=== PATIENT | female | born 1960 ===

== ENCOUNTER 2022-03-22 10:15 | Inpatient (IN) | payer OTHER, BC ==
[~2022-03-22] VITALS: Ht 165.1 cm; Wt 79.4 kg
[2022-03-23] MEDS ORDERED: CLONAZEPAM0.5 MG PO (08:34)
[2022-03-23] MEDS ORDERED: KEPPRA750 MG PO (08:34)
[2022-03-23] MEDS ORDERED: OMEPRAZOLE-BIC1 EAC1 PO (08:35)
[2022-03-23] MEDS ORDERED: VIMPAT200 MG PO (08:35)
[2022-03-23] MEDS ORDERED: TOPAMAX200 MG PO (08:35)
[2022-03-25] MEDS ORDERED: ATORVASTATIN CA10 MG (08:54)
[2022-03-25] MEDS ORDERED: BOTOX100 UNIT (08:55)
[2022-03-25] MEDS ORDERED: INTEGRA PLUS C1 EACH (08:55)
[2022-03-25] MEDS ORDERED: OMEPRAZOLE40 MG (08:55)
[2022-03-25] MEDS ORDERED: ST. JOSEPH ASPI81 M2 (08:55)
[2022-03-25] MEDS ORDERED: TOPIRAMATE100 MG (08:55)
[2022-03-25] MEDS ORDERED: LEVOTHYROXINE25 MC1 (08:55)
[2022-03-25] MEDS ORDERED: CLOTRIMAZOLE-BE15 G1 (08:55)
[2022-03-26] MEDS ORDERED: PERCOCET 5-3251 EACH PO (13:39)
== END 2022-03-26 15:05 | disposition home or self-care (01) | DRG 331 ==
LOC: O/R 03-24 06:50 → SURG 03-24 06:50
PROVIDERS: ADMIT Surgery; ATTEND Surgery
PROC: 07BC4ZZ Excision of Pelvis Lymphatic, Percutaneous Endoscopic Approach (ICD-10-PCS; 2022-03-24)
PROC: 0DTG4ZZ Resection of Left Large Intestine, Percutaneous Endoscopic Approach (ICD-10-PCS; principal; 2022-03-24 10:30)
DX: C18.6 Malignant neoplasm of descending colon (principal); R59.9 Enlarged lymph nodes, unspecified; D50.0 Iron deficiency anemia secondary to blood loss (chronic)